=== PATIENT | female | born 1980 | race Caucasian/White ===

== ENCOUNTER 2024-10-04 16:23 | Emergency (ER) | payer MEDICARE ==
--- NOTE | 2024-10-04 17:40 | ED ---
Psych HPI - General Chief Complaint: Psychiatric Symptoms Stated Complaint: mental health Time Seen by Provider: 10/04/24 17:40 Source: patient, RN notes reviewed Mode of arrival: ambulatory - History of Present Illness Initial Comments: 44-year-old female presenting for mental health evaluation. States she has been feeling very anxious and stressed since her mom from lung cancer 5 days ago. Denies suicidal or homicidal ideation however states she feels like she needs professional help. She has a long history of oxycodone abuse and states she sometimes abuses her gabapentin as well however states she has not overtaken her meds recently. States she has an appointment with [facility] Sunday but feels like she needs help sooner. - Related Data Home Medications Medication Instructions Recorded Confirmed Escitalopram [Lexapro] 20 mg PO DAILY 10/04/24 10/04/24 Gabapentin [Neurontin] 800 mg PO TID 10/04/24 10/04/24 buPROPion XL [Wellbutrin XL] 150 mg PO DAILY 10/04/24 10/04/24 methocarbamoL [Robaxin] 500 mg PO TID 10/04/24 10/04/24 Allergies Allergy/AdvReac Type Severity Reaction Status Date / Time No Known Allergies Allergy Verified 10/04/24 18:47 Review of Systems ROS Statement: Those systems with pertinent positive or pertinent negative responses have been documented in the HPI. ROS Other: All systems not noted in ROS Statement are negative. Past Medical History Past Medical History: Musculoskeletal Disorder History of Any Multi-Drug Resistant Organisms: None Reported Past Surgical History: No Surgical Hx Reported Past Psychological History: Anxiety, Depression Smoking Status: Current every day smoker Past Alcohol Use History: None Reported Past Drug Use History: Opiates General Exam Limitations: no limitations General appearance: alert, anxious Head exam: Present: atraumatic, normocephalic, normal inspection Eye exam: Present: normal appearance, PERRL, EOMI. Absent: scleral icterus, conjunctival injection, periorbital swelling Neurological exam: Present: alert, oriented X3 Psychiatric exam: Present: normal affect, anxious. Absent: homicidal ideation, suicidal ideation Skin exam: Present: warm, dry, intact, normal color. Absent: rash Course Vital Signs 10/04/24 10/04/24 16:57 19:18 Temperature 98.6 F 98.4 F Pulse Rate 117 H 82 Respiratory 22 18 Rate Blood Pressure 120/84 120/81 O2 Sat by Pulse 99 100 Oximetry Medical Decision Making - Medical Decision Making Was pt. sent in by a medical professional or institution (, MICKY, SCRAP DROP OPERATOR, urgent care, hospital, or long term...) When possible be specific @ -No Did you speak to anyone other than the patient for history (EMS, parent, family, police, friend...)? What history was obtained from this source @ -No Did you review nursing and triage notes (agree or disagree)? Why? @ -I reviewed and agree with nursing and triage notes Were old charts reviewed (outside hosp., previous admission, EMS record, old EKG, old radiological studies, urgent care reports/EKG's, long term records)? Report findings @ -No old charts were reviewed Differential Diagnosis (chest pain, altered mental status, abdominal pain women, abdominal pain men, vaginal bleeding, weakness, fever, dyspnea, syncope, headache, dizziness, GI bleed, back pain, seizure, CVA, palpatations, mental health, musculoskeletal)? @ -Differential Mental Health Depression, anxiety, bipolar, psychosis, schizophrenia, borderline personality, situational depression, adjustment disorder, behavioral disorder, brain tumor, malingering, substance abuse, encephalopathy, medication reaction, dementia, hypothyroidism, degenerative neurologic disorder, lupus.... This is not meant to be all-inclusive list EKG interpreted by me (3pts min.). @ -None X-rays interpreted by me (1pt min.). @ -None done CT interpreted by me (1pt min.). @ -None done U/S interpreted by me (1pt. min.). @ -None done What testing was considered but not performed or refused? (CT, X-rays, U/S, labs)? Why? @ -None What meds were considered but not given or refused? Why? @ -None Did you discuss the management of the patient with other professionals (professionals i.e. , MICKY, SCRAP DROP OPERATOR, lab, RT, psych nurse, social services director, operator cavity pump, teacher, radio electronics officer, case management social worker)? Give summary @-I spoke with EPS who determines patient does not meet inpatient criteria for psychiatric care at this time Was smoking cessation discussed for >3mins.? @ -No Was critical care preformed (if so, how long)? @ -No Were there social determinants of health that impacted care today? How? (Homelessness, low income, unemployed, alcoholism, drug addiction, transportation, low edu. Level, literacy, decrease access to med. care, senior living, rehab)? @ -No Was there de-escalation of care discussed even if they declined (Discuss DNR or withdrawal of care, Hospice)? DNR status @ -No What co-morbidities impacted this encounter? (DM, HTN, Smoking, COPD, CAD, Cancer, CVA, ARF, Chemo, Hep., AIDS, mental health diagnosis, sleep apnea, morbid obesity)? @ -None Was patient admitted / discharged? Hospital course, mention meds given and route, prescriptions, significant lab abnormalities, going to OR and other pertinent info. @ - discharge. 44-year-old female presenting for mental health evaluation. States she has been feeling very stressed and anxious since her mother 5 days ago. Denies suicidal or homicidal ideation. No medical complaints at this time. Patient is medically cleared to be seen by EPS. I spoke with EPS to determine as patient does not meet inpatient criteria for psychiatric care at this time. Patient has close outpatient follow-up with [facility] in 2 days. Appropriate return precautions and safety plan discussed. Appropriate follow-up care discussed. Case was discussed with my ED attending Dr. Vogel. Undiagnosed new problem with uncertain prognosis? @ -No Drug Therapy requiring intensive monitoring for toxicity (Heparin, Nitro, Insulin, Cardizem)? @ -No Were any procedures done? @ -No Diagnosis/symptom? @ -Encounter for psychiatric evaluation Acute, or Chronic, or Acute on Chronic? @ -Acute Uncomplicated (without systemic symptoms) or Complicated (systemic symptoms)? @ -Complicated Side effects of treatment? @ -No Exacerbation, Progression, or Severe Exacerbation? @ -No Poses a threat to life or bodily function? How? (Chest pain, [place], [place], pneumonia, PE, COPD, DKA, ARF, appy, cholecystitis, CVA, Diverticulitis, Homicidal, Suicidal, threat to staff... and all critical care pts) @ -Not at this time - Lab Data Lab Results 10/04/24 Range/Units 17:25 Urine Opiates Screen Not Detected (NotDetected) Ur Oxycodone Screen Not Detected (NotDetected) Urine Methadone Screen Not Detected (NotDetected) Ur Barbiturates Screen Not Detected (NotDetected) U Tricyclic Antidepress Not Detected (NotDetected) Ur Phencyclidine Scrn Not Detected (NotDetected) Ur Amphetamines Screen Not Detected (NotDetected) U Methamphetamines Scrn Not Detected (NotDetected) U Benzodiazepines Scrn Detected H (NotDetected) Urine Cocaine Screen Not Detected (NotDetected) U Marijuana (THC) Screen Not Detected (NotDetected) Disposition Clinical Impression: Mental health problem Disposition: HOME SELF-CARE Condition: Stable Additional Instructions: Follow-up for [facility] appointment on Sunday. Please return to the Emergency Department if symptoms worsen or any other concerns. Is patient prescribed a controlled substance at d/c from ED?: No Referrals: Nonstaff,Physician [Primary Care Provider] - 1-2 days Time of Disposition: 19:34
[2024-10-04 18:17] LABS: Amphetamine Screen,Urine Not Detected (NotDetected); Barbiturate Screen,Urine Not Detected (NotDetected); Benzodiazepines Screen,Urine Detected (NotDetected); Cocaine Screen,Urine Not Detected (NotDetected); Methadone Screen, Urine Not Detected (NotDetected); Opiate Screen,Urine Not Detected (NotDetected); Oxycodone Screen, Urine Not Detected (NotDetected); Phencyclidine Screen,Urine Not Detected (NotDetected); Tricyclic Antidepressant,Urine Not Detected (NotDetected); Urn Cannabinoid Scrn Not Detected (NotDetected)
[2024-10-04 19:26] VITALS: RESP 18; TEMP 98.4
[2024-10-04 19:47] VITALS: BP 127/83; PULSE 84
== END 2024-10-04 19:40 | disposition home or self-care (01) ==
LOC: EC 16:23
DX: F48.9 Nonpsychotic mental disorder, unspecified (principal); F17.200 Nicotine dependence, unspecified, uncomplicated
CPT/HCPCS: 80306; 82075; 99285

== ENCOUNTER 2024-12-11 15:03 | Emergency (ER) | payer MEDICARE ==
--- NOTE | 2024-12-11 15:39 | ED ---
Upper Extremity HPI - General Chief Complaint: Extremity Injury, Upper Stated Complaint: Right Wrist Pain Time Seen by Provider: 12/11/24 15:19 Source: patient Mode of arrival: ambulatory Limitations: no limitations - History of Present Illness Initial Comments: The patient is a 44-year-old female with a history of neuropathy, carpal tunnel and mental health issues who presents emergency room with complaints of right wrist pain. Patient states that this started about a week ago after a ball fell onto her wrist. She states that the pain is worse with movement. It radiates from her radial aspect of the wrist up into the hand with movement. She has been taking Motrin and Tylenol without improvement. She is right-handed. Had a carpal tunnel surgery in July 2022. Has not followed up with Ortho regarding this wrist pain and injury. Of note the patient does have a recent hospital visit where it is mention she has a history of oxycodone abuse. Handedness: right - Related Data Home Medications Medication Instructions Recorded Confirmed Escitalopram [Lexapro] 20 mg PO DAILY 10/04/24 10/04/24 Gabapentin [Neurontin] 800 mg PO TID 10/04/24 10/04/24 buPROPion XL [Wellbutrin XL] 150 mg PO DAILY 10/04/24 10/04/24 methocarbamoL [Robaxin] 500 mg PO TID 10/04/24 10/04/24 Previous Rx's Medication Instructions Recorded Ketorolac [Toradol] 10 mg PO Q8HR 5 Days #15 tab 12/11/24 Allergies Allergy/AdvReac Type Severity Reaction Status Date / Time No Known Allergies Allergy Verified 12/11/24 15:10 Review of Systems ROS Statement: Those systems with pertinent positive or pertinent negative responses have been documented in the HPI. ROS Other: All systems not noted in ROS Statement are negative. Constitutional: Reports: as per HPI Musculoskeletal: Reports: joint swelling, arthralgia Neurological: Reports: paresthesias Past Medical History Past Medical History: Musculoskeletal Disorder Additional Past Medical History / Comment(s): nerve damage , OCD History of Any Multi-Drug Resistant Organisms: None Reported Past Surgical History: Cholecystectomy, Hysterectomy Additional Past Surgical History / Comment(s): carpel tunnel Past Psychological History: Anxiety, Depression Smoking Status: Current every day smoker Past Alcohol Use History: None Reported Past Drug Use History: Opiates General Exam Limitations: no limitations Extremities exam: Present: tenderness, normal capillary refill, other (Pain with palpation over the right CMC, pain over the right radial aspect of the right wrist with palpation no significant swelling erythema or warmth. Limited range of motion due to pain. Good capillary refill. Normal sensation of all 5 fingers.). Absent: joint swelling Neurological exam: Present: alert Skin exam: Present: warm, dry Course Vital Signs 12/11/24 12/11/24 15:10 16:00 Temperature 97.8 F 98.1 F Pulse Rate 115 H 86 Respiratory 18 18 Rate Blood Pressure 144/81 137/93 O2 Sat by Pulse 97 94 L Oximetry - Reevaluation(s) Reevaluation #1: 12/11/24 17:01 I discussed imaging results with the patient which were negative for any fracture or acute changes. No obvious inflammation seen on the x-ray. I discussed management including rest ice anti-inflammatories and follow-up with hearing instrument specialist. Patient understands agrees to treatment discharge plan. An Harley wrap was placed on the wrist and thumb for stabilization as we did not have a thumb spica splint in the emergency room. She does understand she can buy a thumb spica at the pharmacy for extra support. Medical Decision Making - Medical Decision Making Was pt. sent in by a medical professional or institution (, PA, REPAIR COIL WINDER, urgent care, hospital, or shelter...) When possible be specific @ -[No] Did you speak to anyone other than the patient for history (EMS, parent, family, police, friend...)? What history was obtained from this source @ -[No] Did you review nursing and triage notes (agree or disagree)? Why? @ -Yes Were old charts reviewed (outside hosp., previous admission, EMS record, old EKG, old radiological studies, urgent care reports/EKG's, shelter records)? Report findings @ -yes a chart from September ER admission was reviewed and evaluated. Documented history of oxycodone abuse was noted. Differential Diagnosis (chest pain, altered mental status, abdominal pain women, abdominal pain men, vaginal bleeding, weakness, fever, dyspnea, syncope, headache, dizziness, GI bleed, back pain, seizure, CVA, palpatations, mental health, musculoskeletal)? @ -Fracture of the right wrist, right first CMC osteoarthritis, tendinitis, right wrist sprain EKG interpreted by me (3pts min.). @ -[As above] X-rays interpreted by me (1pt min.). @ -X-rays negative for any obvious fracture or deformity. CT interpreted by me (1pt min.). @ -[None done] U/S interpreted by me (1pt. min.). @ -[None done] What testing was considered but not performed or refused? (CT, X-rays, U/S, labs)? Why? @ -[None] What meds were considered but not given or refused? Why? @ -Narcotic prescriptions were not given today given patient's history and there are no fractures that would warrant narcotic treatment Did you discuss the management of the patient with other professionals (professionals i.e. , PA, REPAIR COIL WINDER, lab, RT, psych nurse, social research assistant, master plumber, teacher, commissioned fire officer, case supervisor)? Give summary @ -Discussed discharge with Was smoking cessation discussed for >3mins.? @ -[No] Was critical care preformed (if so, how long)? @ -[No] Were there social determinants of health that impacted care today? How? (Homelessness, low income, unemployed, alcoholism, drug addiction, transportation, low edu. Level, literacy, decrease access to med. care, shelter, rehab)? @ -[No] Was there de-escalation of care discussed even if they declined (Discuss DNR or withdrawal of care, Hospice)? DNR status @ -[No] What co-morbidities impacted this encounter? (DM, HTN, Smoking, COPD, CAD, Cancer, CVA, ARF, Chemo, Hep., AIDS, mental health diagnosis, sleep apnea, morbid obesity)? @ -[None] Was patient admitted / discharged? Hospital course, mention meds given and route, prescriptions, significant lab abnormalities, going to OR and other perti nent info. @ -Patient is stable to follow-up as an outpatient and be discharged. She is to follow-up with hearing instrument specialist referral given today Undiagnosed new problem with uncertain prognosis? @ -[No] Drug Therapy requiring intensive monitoring for toxicity (Heparin, Nitro, Insulin, Cardizem)? @ -[No] Were any procedures done? @ -[No] Diagnosis/symptom? @ -Right wrist pain, right wrist tendinitis Acute, or Chronic, or Acute on Chronic? @ -Acute Uncomplicated (without systemic symptoms) or Complicated (systemic symptoms)? @ -[default] Side effects of treatment? @ -[No] Exacerbation, Progression, or Severe Exacerbation? @ -[No] Poses a threat to life or bodily function? How? (Chest pain, [place], [place], pneumonia, PE, COPD, DKA, ARF, appy, cholecystitis, CVA, Diverticulitis, Homicidal, Suicidal, threat to staff... and all critical care pts) @ -[No] Disposition Clinical Impression: Contusion of right wrist, Tendonitis, Wrist strain Disposition: HOME SELF-CARE Condition: Good Instructions (If sedation given, give patient instructions): Wrist Injury (ED), Muscle Strain (ED), Tendinitis (ED) Prescriptions: Ketorolac [Toradol] 10 mg PO Q8HR 5 Days #15 tab Is patient prescribed a controlled substance at d/c from ED?: No Referrals: Nonstaff,Physician [Primary Care Provider] - 1-2 days Kang Luther MD [STAFF PHYSICIAN] - 1-2 days Harjeet Hartman DO [REFERRING] - 1-2 days Allyn Montelongo MD [STAFF PHYSICIAN] - 1-2 days Time of Disposition: 17:09
--- NOTE | 2024-12-11 16:44 | XR ---
EXAMINATION TYPE: XR wrist complete RT DATE OF EXAM: 12/11/2024 4:39 PM COMPARISON: None CLINICAL INDICATION: Female, 44 years old with history of PAIN, INJURY; , pain TECHNIQUE: XR wrist complete RT; examined in the Frontal, navicular, lateral, and oblique. FINDINGS: No acute osseous pathology, joint dislocation, or joint effusion. No evidence of any soft tissue swelling is seen. IMPRESSION: No acute osseous pathology. [facility], , 12/11/2024 4:41 PM
[2024-12-11 17:51] VITALS: BP 127/85; PULSE 74; RESP 19; TEMP 98.2
== END 2024-12-11 17:50 | disposition home or self-care (01) ==
LOC: EC 15:03
DX: S66.919A Strain of unspecified muscle, fascia and tendon at wrist and hand level, unspecified hand, initial encounter (principal); M77.9 Enthesopathy, unspecified; F17.200 Nicotine dependence, unspecified, uncomplicated; W20.8XXA Other cause of strike by thrown, projected or falling object, initial encounter
CPT/HCPCS: 99284